=== PATIENT | male | born 1975 | race Caucasian/White ===

== ENCOUNTER → 2019-03-06 | Day surgery (SDC) | payer OTHER ==
[~2019-03-06] MED LIST: Buffered Lidocaine 1% SYRIN* 1 ML/SYRINGE INTRADERM ONE; Bupivacaine 0.25% SDV PF* 10 ML VIAL INJ ONE; Dexamethasone IV* 4 MG/ML 1 ML (4 MG) ONE; HYDROcodone/ACETAMIN 5-325 MG* 1 TAB ONE; HYDROmorphone INJ1* 1 MG/ML SYRINGE IV PRN; Ketorolac INJ* 30 MG/ML 1 ML VIAL ONE; Lactated Ringers 1000 ML Bag* 1,000 ML IV SCH; Lidocaine 2% PF * 5 ML VIAL ONE; Midazolam* 1 MG/ML 5 ML VIAL (5 MG) ONE; Naloxone* 0.4 MG/ML 1 ML VIAL IV PRN; Ondansetron INJ* 2 MG/ML VIAL ONE; Propofol* 10 MG/ML 20 ML BTL ONE; ceFAZolin 2 GM in NS PREMIX(*) 2 GM/100 ML BAG IVPB ONE; fentaNYL* 50 MCG/ML 2 ML VIAL (100 MCG VIAL) ONE
[2019-03-06 13:01] VITALS: BP 135/92
--- NOTE | 2019-03-06 22:05 | OP ---
DATE OF OPERATION: 03/06/19 - [facility] DATE OF : 71 SURGEON: Inocente Sargent MD. VARNISHER: MARCO ANTONIO Duong. An clothing sales assistant was needed for the procedure to aid in positioning of the arm and retraction. ANESTHESIOLOGIST: Dr. Rodriguez. ANESTHESIA: General. PRE-OP DIAGNOSES: 1. Left elbow lateral epicondylitis. 2. Left radial tunnel syndrome. POST-OP DIAGNOSES: 1. Left elbow lateral epicondylitis. 2. Left radial tunnel syndrome. OPERATIVE PROCEDURE: 1. Left radial tunnel release. 2. Debridement of left elbow lateral epicondylitis with tendon repair. INDICATIONS: Mr. Vora has the aforementioned conditions. We talked about treatment options. He wanted to proceed with surgery. ESTIMATED BLOOD LOSS: 5 mL. COMPLICATIONS: None. FINDINGS: See above and below. DESCRIPTION OF PROCEDURE: Mr. Vora was seen in the preoperative holding area. The correct side, site, and procedures were identified. We came back to the operating room. The arm was prepped and draped in the usual fashion and a time-out was performed. The arm was exsanguinated with the Esmarch and the tourniquet was inflated to 250 mmHg. I first made a 5 or 6 cm incision centered over the lateral epicondyle. Dissection was carried down. Full thickness flaps were raised off of the extensor fascia. I utilized the interval between the ECRL and the EDC tendons to gain access to the deeper ECRB tendon. This was debrided right off the footprint on the lateral epicondyle, a little bit of the radial capitellar joint capsule came with the debridement. I then used the curette and a rongeur to fully debride any remnants of the tendon off the bone and create a little bit roughened surface on the bone to allow for some tendon healing. I trimmed just a little bit of the lateral epicondyle with a rongeur. Care was taken to preserve the lateral ulnar collateral ligament. The wound was irrigated out. I went ahead and repaired the tendon back to its origin on the lateral epicondyle with 0 Vicryl suture. Again, the wound was irrigated out and the skin was closed with cristina. I then made an incision longitudinally centered over the brachioradialis muscle. Dissection was carried down and full thickness flaps were raised off of the fascia to preserve any traversing sensory nerves. I opened up the fascia right over the junction between the brachioradialis and the ECRL. Finger dissection took me down to the radial nerve. Self-retaining retractor was placed. I had excellent visualization of the sensory branch of the radial nerve. This was dissected distally and proximally. I then noted the trifurcation and identified the very large posterior interosseous nerve. This was dissected out. The arcade of [place] was clipped with a hemoclip. The supinator tendinous arc was released. The PIN was released throughout the entirety of the supinator. The ECRB tendon was again released here. Care was taken to obtain hemostasis by the use of the bipolar and clips. The nerve to supinator was preserved. Once I had fully released the nerve, I came proximally and released the radial nerve all past the antecubital fossa. Everything was looking very good. There was excellent decompression. I went ahead and dropped the tourniquet. There was no active bleeding, irrigated out the wound. The skin was closed with cristina. A 0.25% plain Marcaine was infiltrated all about the wounds. Wounds were dressed with Xeroform, 4x4s, sterile Webril and a long arm splint with a lateral buttress was applied. He was taken to the recovery room in stable condition. [id number] #: [id number] KATINA
== END | disposition home or self-care (01) ==
LOC: OR 07:08
PROVIDERS: ATTEND Orthopaedic Surgery Hand Surgery
DX: M77.12 Lateral epicondylitis, left elbow (principal); G56.32 Lesion of radial nerve, left upper limb; F17.210 Nicotine dependence, cigarettes, uncomplicated; J45.909 Unspecified asthma, uncomplicated; E03.9 Hypothyroidism, unspecified; M19.90 Unspecified osteoarthritis, unspecified site; F41.9 Anxiety disorder, unspecified
CPT/HCPCS: 88304; J0690; J1100; J1885; J2250; J2405; J2704; J3010; J3490